=== PATIENT | male | born 1995 | race Caucasian/White ===

== ENCOUNTER 2023-10-07 14:34 | Emergency (ER) | payer SELFPAY ==
[2023-10-07 14:46] VITALS: BP 140/78; PULSE 96; RESP 16; TEMP 37.2; O2SAT 100
[2023-10-07 14:47] VITALS: BP 140/78; PULSE 96; RESP 16; TEMP 37.2; O2SAT 100
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
== END 2023-10-07 15:44 | disposition home or self-care (01) ==
PROVIDERS: Emergency Provider Nurse Practitioner
DX: S01.81XA Laceration without foreign body of other part of head, initial encounter (principal); V18.0XXA Pedal cycle driver injured in noncollision transport accident in nontraffic accident, initial encounter
CPT/HCPCS: 99212; G0463